=== PATIENT | female | born 1960 | race Caucasian/White ===

== ENCOUNTER 2023-11-09 06:07 | Day surgery (SDC) | payer BC ==
[~2023-11-09] VITALS: Ht 154.9 cm; Wt 87.1 kg
[~2023-11-09 06:07] MED LIST: ASPI81TA86 PO; ATOR1TAB21 PO; ECOT81TA5 PO; FAMO40TA3 PO; NAPR-885 PO; PROBCAP14 PO; WOMETAB PO; ceFAZolin SOD 2 GM in IV 1 EA IV ONE
[2023-11-09] MEDS ORDERED: LR 1,000 ML IV SCH ×2 (06:30→08:55)
[2023-11-09] MEDS ORDERED: ACETAMINOPHEN 1000MG 100ML IV BAG As Ordered ONE (07:07)
[2023-11-09] MEDS ORDERED: LIDOCAINE 2% 100MG/5ML SDV (FOR ANES.) As Ordered ONE (07:07)
[2023-11-09] MEDS ORDERED: MIDAZOLAM INJ 2MG/2ML VIAL As Ordered ONE (07:07)
[2023-11-09] MEDS ORDERED: ONDANSETRON 4MG 2ML VIAL As Ordered ONE (07:07)
[2023-11-09] MEDS ORDERED: propofoL 200 MG/20 ML VIAL As Ordered ONE (07:07)
[2023-11-09] MEDS ORDERED: fentaNYL 100 MCG/2 ML INJECTION As Ordered ONE (07:08)
[2023-11-09] MEDS ORDERED: HYDR-3713 PO (07:31)
[2023-11-09] MEDS: LIDOCAINE 1% SDV 30ML VIAL As Ordered ONE (08:31)
[2023-11-09] MEDS ORDERED: fentaNYL 100 MCG/2 ML INJECTION IV PRN (08:55)
[2023-11-09] MEDS: ONDANSETRON 4MG 2ML VIAL IV PRN (09:17)
[2023-11-09] MEDS: oxyCODONE 5MG TAB PO PRN (09:45)
[2023-11-09] MEDS ORDERED: HYDROMORPHONE HCL 0.5 MG/ 0.5 ML SYRINGE IV PRN (11:40)
[2023-11-09 12:21] VITALS: BP 159/82; TEMP 98; O2SAT 95
== END 2023-11-09 12:21 | disposition home or self-care (01) ==
LOC: M SDC 06:07
PROVIDERS: ATTEND Podiatrist Foot & Ankle Surgery
DX: M20.12 Hallux valgus (acquired), left foot (principal); M21.612 Bunion of left foot; I49.3 Ventricular premature depolarization; E78.00 Pure hypercholesterolemia, unspecified; G47.30 Sleep apnea, unspecified; Z79.82 Long term (current) use of aspirin; Z79.899 Other long term (current) drug therapy; K21.9 Gastro-esophageal reflux disease without esophagitis; Z90.710 Acquired absence of both cervix and uterus; Z87.891 Personal history of nicotine dependence
CPT/HCPCS: 28297; 97116; 97530; C1713; J0131; J0665; J1100; J2250; J2405; J3010

== ENCOUNTER 2025-01-08 06:04 | Day surgery (SDC) | payer BC ==
[~2025-01-08] VITALS: Ht 154.9 cm; Wt 90.3 kg
[~2025-01-08 06:04] MED LIST changes: +HYDR-3713 PO; +MULTTAB20 PO; -ceFAZolin SOD 2 GM in IV 1 EA IV ONE
[2025-01-08] MEDS ORDERED: fentaNYL 100 MCG/2 ML INJECTION As Ordered ONE (06:08)
[2025-01-08] MEDS ORDERED: MIDAZOLAM INJ 2MG/2ML VIAL As Ordered ONE (06:08)
[2025-01-08] MEDS ORDERED: propofoL 200 MG/20 ML VIAL As Ordered ONE (06:10)
[2025-01-08] MEDS ORDERED: LIDOCAINE 2% 100MG/5ML SDV (FOR ANES.) As Ordered ONE (06:10)
[2025-01-08] MEDS ORDERED: ACETAMINOPHEN 1000MG/100ML IV BAG As Ordered ONE (06:33)
[2025-01-08] MEDS ORDERED: KETOROLAC 60MG 2ML VIAL As Ordered ONE (06:33)
[2025-01-08] MEDS ORDERED: LISI5TAB11 (06:34)
[2025-01-08] MEDS ORDERED: ONDANSETRON 4MG 2ML VIAL As Ordered ONE (06:34)
[2025-01-08] MEDS ORDERED: METF500T13 (06:34)
[2025-01-08] MEDS: LR 1,000 ML IV SCH (07:03)
[2025-01-08] MEDS: SCOPOLAMINE 1MG TRANSDERMAL PATCH TOP ONE (07:29)
[2025-01-08] MEDS: ceFAZolin SOD 2 GM IV ONCE IV ONE (07:36)
[2025-01-08] MEDS: LIDOCAINE 1% SDV 30ML VIAL As Ordered ONE (07:39)
[2025-01-08] MEDS: PROMETHAZINE 25MG/ML 1ML VIAL IM ONE (08:11)
[2025-01-08 08:16] VITALS: BP 114/70; TEMP 97.6; O2SAT 96
== END 2025-01-08 08:54 | disposition home or self-care (01) ==
LOC: M SDC 06:04
PROVIDERS: ATTEND Podiatrist Foot & Ankle Surgery
DX: T84.84XA Pain due to internal orthopedic prosthetic devices, implants and grafts, initial encounter (principal); I10 Essential (primary) hypertension; E78.5 Hyperlipidemia, unspecified; K21.9 Gastro-esophageal reflux disease without esophagitis; G47.33 Obstructive sleep apnea (adult) (pediatric); R73.03 Prediabetes; Z79.84 Long term (current) use of oral hypoglycemic drugs; Z79.899 Other long term (current) drug therapy; Z87.891 Personal history of nicotine dependence
CPT/HCPCS: 20680; J0131; J0665; J0690; J1885; J2250; J2405; J2550; J3010